=== PATIENT | female | born 1995 | race Caucasian/White ===

== ENCOUNTER 2024-02-15 15:33 | Emergency (ER) | payer MEDICAID, OTHER, SELFPAY ==
[2024-02-15 15:57] VITALS: BP 116/80; PULSE 111; RESP 19; TEMP 36.6; O2SAT 100; BMI 25.4
--- NOTE | 2024-02-15 19:19 | PC.NURSE ---
When room became available pt was called back. No answer. Pt was checked on @ 1749, 1805, and called on phone @ 3971. LWBS.
== END 2024-02-15 18:23 | disposition left against medical advice (07) ==
PROVIDERS: Emergency Provider Emergency Medicine
CPT/HCPCS: 99281

== ENCOUNTER 2024-02-18 23:24 | Observation (INO) | payer OTHER, MEDICAID, SELFPAY ==
[2024-02-18 23:35] VITALS: BP 125/84; PULSE 81; RESP 16; TEMP 36.6; O2SAT 96; BMI 25.4
[2024-02-18 23:36] VITALS: PULSE 86; O2SAT 99
[2024-02-18 23:37] VITALS: BP 125/84; PULSE 87; O2SAT 100
--- NOTE | 2024-02-18 23:51 | ED.ABDPAIN ---
HPI - Abdominal Pain General Chief Complaint: Abdominal Pain Stated Complaint: appendix Time Seen by Provider: 02/18/24 23:28 Source: patient Mode of arrival: Wheelchair History of Present Illness HPI narrative: 28-year-old female with history of amphetamine use, heroin, fentanyl use presents by private vehicle from home for severe lower abdominal pain, particularly on the right-hand side. Patient presented to the emergency department 3 days prior but left prior to being roomed. Patient states that she was not had a bowel movement in at least 1 week. Last use fentanyl several hours prior to arrival. States that she was tried to use an enema without relief. Has also tried to take MiraLax but she can not tolerate it due to vomiting. Related Data Allergies Allergy/AdvReac Type Severity Reaction Status Date / Time cefazolin Allergy Verified 02/19/24 05:31 Patient History Social History Smoking Status: Current every day smoker Smoking Status: Current every day smoker tobacco type: cigarettes and vaping alcohol intake frequency: other Substance Use Type: heroin, opiates and methamphetamine Exam Initial Vital Signs Initial Vital Signs: Vital Signs Temperature 97.8 F 02/18/24 23:35 Pulse Rate 81 02/18/24 23:35 Respiratory Rate 16 02/18/24 23:35 Blood Pressure 125/84 02/18/24 23:35 Pulse Oximetry 96 02/18/24 23:35 Oxygen Delivery Method Room Air 02/18/24 23:35 Const: Awake, alert, agitated, appears older than stated age Cardiac: regular rate, regular rhythm RESP: unlabored, clear bilaterally, no wheezing GI: Soft, generalized tenderness to deep palpation without rebound or guarding Skin: Warm, Dry, intact, no rashes Neuro: AO x3, CN II-XII grossly intact, moves all extremities Course Orders Ordered: Discontinued Medications Acetaminophen (Acetaminophen 325 Mg Tablet) 650 mg PO Q6H PRN PRN Reason: Fever/Mild Pain (1-3) Glycerin (Glycerin Supp Adult 1 Supp) 1 each NM NOW ONE Stop: 02/19/24 01:00 Last Admin: 02/19/24 01:34 Dose: 1 each Documented By: GIANA Sodium Chloride (Normal Saline 0.9%) 1,000 mls @ 1,000 mls/hr IV BOLUS ONE Stop: 02/19/24 00:49 Last Infusion: 02/19/24 01:28 Dose: Infused Documented By: Admin: 02/19/24 00:13 Dose: 1,000 mls/hr Documented By: GIANA Sodium Chloride (Normal Saline 0.9%) 1,000 mls @ 125 mls/hr IV CONT SUSANNE Last Infusion: 02/19/24 10:34 Dose: 0 mls/hr Documented By: Admin: 02/19/24 06:48 Dose: 125 mls/hr Documented By: GIANA Ketorolac Tromethamine (Ketorolac 30 Mg/Ml Vial) 15 mg IV NOW ONE Stop: 02/18/24 23:51 Last Admin: 02/19/24 00:13 Dose: 15 mg Documented By: GIANA Lactulose (Lactulose 20 Gm/30 Ml Solution) 40 gm PO NOW ONE Stop: 02/19/24 05:20 Last Admin: 02/19/24 05:40 Dose: 40 gm Documented By: GIANA Methylnaltrexone [address] (Methylnaltrexone 12 Mg/0.6 Ml Vial) 8 mg SUBCUT NOW ONE Stop: 02/19/24 01:00 Last Admin: 02/19/24 01:29 Dose: Not Given Documented By: GIANA Metoclopramide HCl (Metoclopramide 10 Mg/2 Ml Inj) 10 mg IV NOW ONE Stop: 02/19/24 01:54 Last Admin: 02/19/24 01:56 Dose: 10 mg Documented By: GIANA Naloxone HCl (Naloxone 0.4 Mg/Ml Vial) 0.2 mg IV Q2MIN PRN PRN Reason: Opiate Reversal Ondansetron HCl (Ondansetron 4 Mg/2 Ml Inj) 4 mg IV NOW ONE Stop: 02/18/24 23:51 Last Admin: 02/19/24 00:13 Dose: 4 mg Documented By: GIANA Ondansetron HCl (Ondansetron 4 Mg/2 Ml Inj) 4 mg IV Q8HR PRN PRN Reason: Nausea And Vomiting Last Admin: 02/19/24 10:20 Dose: 4 mg Documented By: STEVE Polyethylene Glycol/Electrolytes ([id number]/Sod Sulf,Bicarb,Cl/Kcl 4,000 Ml Solution) 4,000 ml PO NOW ONE Stop: 02/19/24 00:59 Last Admin: 02/19/24 01:34 Dose: 4,000 ml Documented By: GIANA Polyethylene Glycol/Electrolytes ([id number]/Sod Sulf,Bicarb,Cl/Kcl 4,000 Ml Solution) 2,000 ml PO NOW ONE Stop: 02/19/24 08:34 Last Admin: 02/19/24 09:19 Dose: Not Given Documented By: STEVE Prochlorperazine (Prochlorperazine 10 Mg/2 Ml Vial) 10 mg IV NOW ONE Stop: 02/19/24 05:20 Last Admin: 02/19/24 05:41 Dose: 10 mg Documented By: GIANA Sennosides (Sennosides 8.6 Mg Tablet) 17.2 mg PO NOW ONE Stop: 02/19/24 05:20 Last Admin: 02/19/24 05:40 Dose: 17.2 mg Documented By: GIANA Sodium Biphosphate/Sodium Phosphate (Fleets Enema) 1 each NM NOW ONE Stop: 02/19/24 01:00 Last Admin: 02/19/24 01:44 Dose: 1 each Documented By: GIANA Sodium Biphosphate/Sodium Phosphate (Fleets Enema) 1 each NM NOW ONE Stop: 02/19/24 05:01 Last Admin: 02/19/24 05:09 Dose: 1 each Documented By: GIANA Vital Signs Vital signs: Vital Signs - 8 hr 02/18/24 23:35 02/18/24 23:36 02/18/24 23:37 Temperature 97.8 F Pulse Rate 81 86 87 Respiratory Rate 16 Blood Pressure 125/84 Pulse Oximetry 96 99 100 Oxygen Delivery Method Room Air Room Air 02/18/24 23:37 02/19/24 00:00 02/19/24 00:21 Temperature Pulse Rate 83 68 Respiratory Rate Blood Pressure 125/84 Pulse Oximetry 98 99 Oxygen Delivery Method Room Air 02/19/24 00:21 02/19/24 00:41 02/19/24 00:41 Temperature Pulse Rate 74 Respiratory Rate 16 Blood Pressure 159/81 H 153/91 H Pulse Oximetry 100 Oxygen Delivery Method Room Air 02/19/24 01:00 02/19/24 01:00 02/19/24 01:30 Temperature Pulse Rate 73 71 Respiratory Rate 15 Blood Pressure 130/74 Pulse Oximetry 95 98 Oxygen Delivery Method Room Air 02/19/24 01:30 02/19/24 05:39 02/19/24 05:39 Temperature Pulse Rate 86 Respiratory Rate 17 Blood Pressure 115/71 104/69 Pulse Oximetry 100 Oxygen Delivery Method Room Air 02/19/24 05:41 Temperature Pulse Rate 74 Respiratory Rate Blood Pressure 104/69 Pulse Oximetry Oxygen Delivery Method MDM - Abdominal Pain Differential Diagnosis Differential diagnosis: Likely abdominal pain, acute appendicitis and calculus of kidney Lab Data 02/18/24 23:58 02/18/24 23:58 Labs: Lab Results 02/18/24 Range/Units 23:58 WBC 6.3 (4.5-11.0) X10^3/uL RBC 4.56 (4.0-5.2) X10^6/uL Hgb 13.3 (12.0-16.0) g/dL Hct 39.0 (36-46) % MCV 85.5 (80-100) fL MCH 29.1 (26-34) PG MCHC 34.0 (30-36) % RDW 12.6 (11.6-14.8) % Plt Count 161 (150-400) X10^3/uL Neut % (Auto) 70.5 (50-75) % Lymph % (Auto) 20.1 L (25-40) % [place] % (Auto) 7.8 (3-14) % Eos % (Auto) 1.1 L (2-4) % Baso % (Auto) 0.5 (0-2) % Neut # (Auto) 4400 (0193-8804) /uL Lymph # (Auto) 1300 (2336-8493) /uL [place] # (Auto) 500 (0-900) /uL Eos # (Auto) 100 (0-450) /uL Baso # (Auto) 0 (0-100) /uL Sodium 137 (137-145) mmol/L Potassium 4.1 (3.4-5.1) mmol/L Chloride 105 (98-107) mmol/L Carbon Dioxide 27 (22-32) mmol/L BUN 13 (7-17) mg/dL Creatinine 0.77 (0.52-1.04) mg/dL Estimated GFR > 60 (>60) mL/min BUN/Creatinine Ratio 16.9 (6-22) Glucose 101 H (70-100) mg/dL Lactate 0.7 (0.7-2.1) mmol/L Calcium 9.2 (8.4-10.2) mg/dL Total Bilirubin 0.6 (0.2-1.3) mg/dL AST 28 (14-36) IU/L ALT 21 (<35) IU/L Alkaline Phosphatase 71 (38-126) U/L Total Protein 7.2 (6.3-8.2) g/dL Albumin 4.3 (3.5-5.0) g/dL Globulin 2.9 (1.7-4.1) g/dL Albumin/Globulin Ratio 1.5 (1.0-2.8) Imaging Data CT scan - abdomen/pelvis: Radiologist's Impression: PROCEDURE: CT ABDOMEN PELVIS W CON INDICATIONS: RLQ ABD PAIN TECHNIQUE: After the administration of intravenous contrast, axial sections acquired from the lung bases to the pubic symphysis. Coronal and sagittal reformats were performed. For radiation dose reduction, the following was used: automated exposure control, adjustment of mA and/or kV according to patient size. COMPARISON: None. FINDINGS: Image quality: Diagnostic. Lower Chest: No significant findings. ABDOMEN: Liver: No solid mass. Gallbladder: No radiopaque gallstones or wall thickening. Biliary ducts: No biliary dilation. Pancreas: No ductal dilation. Spleen: Size is within normal limits. Adrenal Glands: No adrenal nodules. Kidneys and Ureters: No hydronephrosis. No solid mass. No complex renal cystic lesion which requires follow up. Stomach and Bowel: There is significant colonic stool. In addition, dilated fluid-filled loops of small bowel are present with greatest dimension measuring 3.5 cm. Peritoneum: No abnormal intraperitoneal fluid. No free air. Ventral Wall: No significant ventral hernia. Abdominal Nodes: No retroperitoneal or mesenteric adenopathy by size criteria. Vessels: Aorta and inferior vena cava are normal in size. PELVIS: Pelvic Organs: Unremarkable. Bladder: No bladder wall thickening, accounting for underdistention. Pelvic Nodes: No enlarged lymph nodes. Miscellaneous: No inguinal hernias are seen. Bones: No aggressive osseous abnormality. IMPRESSION: Dilated fluid-filled loops of small bowel most consistent with partial small bowel obstruction. Causes suspected to be related to significant quantity of colonic stool. Dictated by: Shari Chauhan M.D. on 02/19/2024 at 0:49 Approved by: Shari Chauhan M.D. on 02/19/2024 at 0:51 MDM Narrative Medical decision making narrative: Abdominal pain and constipation, likely exacerbated by chronic opiate use. Since patient was reporting that her ?appendix? hurts and that she is having right-sided abdominal pain a CT scan will be ordered. Laxatives ordered. CT shows possible partial SBO, thought likely secondary to large colonic stool burden. Attempted suppository and enema without relief. Patient given gallon of go lytely to start bowel cleanout, however patient refused to try more than a few sips. Instructed patient that next step would be NG tube placement for bowel cleanout. Patient requested we place NG tube rather than try po. Patient immediately ripped out NG tube and began vomiting. Nursing staff attempted multiple soapsuds enemas without relief of stool burden. Additional laxatives and nausea medications ordered. Despite more IV pain meds as well as laxatives patient has still not been able to have a bowel movement and is still not tolerating p.o.. Plan to admit for observation. Discharge Plan Departure Patient Disposition: Left Against Medical Advice Clinical Impression: Abdominal pain, Constipation, Adv eff opiates
[2024-02-19] VITALS (14 sets, daily range): BP systolic 101–159; BP diastolic 61–91; PULSE 68–90; RESP 15–17; O2SAT 95–100
[2024-02-19 00:05] LABS: Add Manual Diff / Slide Review NO; Basophils Absolute Auto 0 /uL (0-100); Basophils Percent Auto 0.5 % (0-2); Eosinophils Absolute Auto 100 /uL (0-450); Eosinophils Percent Auto 1.1 % (2-4); Hemoglobin 13.3 g/dL (12.0-16.0); Lymphocytes Absolute Auto 1300 /uL (1100-4500); Lymphocytes Percent Auto 20.1 % (25-40); Mean Corpuscular Hemoglobin 29.1 PG (26-34); Mean Corpuscular Volume 85.5 fL (80-100); Monocytes Absolute Auto 500 /uL (0-900); Monocytes Percent Auto 7.8 % (3-14); Neutrophils Absolute Auto 4400 /uL (1500-7000); Neutrophils Percent Auto 70.5 % (50-75); Platelet Count 161 X10^3/uL (150-400); Red Blood Cell Count 4.56 X10^6/uL (4.0-5.2); Red Cell Distribution Width 12.6 % (11.6-14.8); White Blood Cell Count 6.3 X10^3/uL (4.5-11.0)
[2024-02-19] MEDS: KETOROLAC 30 MG/ML VIAL 15 MG IV (00:13)
[2024-02-19] MEDS: ONDANSETRON 4 MG/2 ML INJ IV ×2 (00:13→10:20)
[2024-02-19] MEDS: SODIUM CHLORIDE 0.9% 1,000 ML 1000 ML IV (00:13)
[2024-02-19 00:17] LABS: Alanine Aminotransferase 21 IU/L (<35); Albumin 4.3 g/dL (3.5-5.0); Albumin Globulin Ratio 1.5 (1.0-2.8); Alkaline Phosphatase 71 U/L (38-126); Aspartate Aminotransferase 28 IU/L (14-36); BUN Creatinine Ratio 16.9 (6-22); Bilirubin Total 0.6 mg/dL (0.2-1.3); Blood Urea Nitrogen 13 mg/dL (7-17); Calcium 9.2 mg/dL (8.4-10.2); Carbon Dioxide 27 mmol/L (22-32); Chloride 105 mmol/L (98-107); Estimated Glomerular Filt Rate > 60 mL/min (>60); Globulin 2.9 g/dL (1.7-4.1); Glucose 101 mg/dL (70-100); HEMOLYSIS < 15 (0-50); Lactate (Lactic Acid) 0.7 mmol/L (0.7-2.1); Potassium 4.1 mmol/L (3.4-5.1); Sodium 137 mmol/L (137-145); Total Protein 7.2 g/dL (6.3-8.2)
[2024-02-19] MEDS: PEG3350/SOD SULF,BICARB,CL/KCL 4,000 ML SOLUTION 4000 ML PO (01:34)
[2024-02-19] MEDS: GLYCERIN SUPP ADULT 1 SUPP 1 EACH PR (01:34)
[2024-02-19] MEDS: FLEETS ENEMA 1 EACH PR ×2 (01:44→05:09)
[2024-02-19] MEDS: METOCLOPRAMIDE 10 MG/2 ML INJ IV (01:56)
--- NOTE | 2024-02-19 04:13 | PC.NURSE ---
This nurse attempted to insert NG tube in patient. Was able to insert 6 inches before patient grabbed the tube and pulled it out and said I don't want that thing. Dr. Chung notified, new order of enema administration received.
--- NOTE | 2024-02-19 05:16 | PC.NURSE ---
After a suppository, fleet enema, a soap baldomero enema, and another fleet enema, the patient was only able to have a small hard bowel movement.
[2024-02-19] MEDS: LACTULOSE 20 GM/30 ML SOLUTION 40 GM PO (05:40)
[2024-02-19] MEDS: SENNOSIDES 8.6 MG TABLET 17.2 MG PO (05:40)
[2024-02-19] MEDS: PROCHLORPERAZINE 10 MG/2 ML VIAL IV (05:41)
--- NOTE | 2024-02-19 06:15 | PC.NURSE ---
Patient had large emesis after taking the lactulose and oral senna tablets. Dr. Chung aware, awaiting orders.
[2024-02-19] MEDS: SODIUM CHLORIDE 0.9% 1,000 ML 125 ML IV (06:48)
--- NOTE | 2024-02-19 08:33 | PM.HP.1 ---
History of Present Illness History of Present Illness Date Patient Seen: 02/19/24 Chief complaint: appendix Narrative: From ED doctor: 28-year-old female with history of amphetamine use, heroin, fentanyl use presents by private vehicle from home for severe lower abdominal pain, particularly on the right-hand side. Patient presented to the emergency department 3 days prior but left prior to being roomed. Patient states that she was not had a bowel movement in at least 1 week. Last use fentanyl several hours prior to arrival. States that she was tried to use an enema without relief. Has also tried to take MiraLax but she can not tolerate it due to vomiting. S: [facility] Social History Smoking Status: Current every day smoker Meds Home Medications and Allergies Allergies Allergy/AdvReac Type Severity Reaction Status Date / Time cefazolin Allergy Verified 02/19/24 05:31 Review of Systems Review of Systems Narrative: All else reviewed and otherwise unremarkable except as noted in the history and physical. Exam Vital Signs (past 8 hours): - 02/19/24 00:41 02/19/24 00:41 02/19/24 01:00 Pulse Rate 74 73 Respiratory Rate 16 Blood Pressure 153/91 H Pulse Oximetry 100 95 Oxygen Delivery Method Room Air 02/19/24 01:00 02/19/24 01:30 02/19/24 01:30 Pulse Rate 71 Respiratory Rate 15 Blood Pressure 130/74 115/71 Pulse Oximetry 98 Oxygen Delivery Method Room Air 02/19/24 05:39 02/19/24 05:39 02/19/24 05:41 Pulse Rate 86 74 Respiratory Rate 17 Blood Pressure 104/69 104/69 Pulse Oximetry 100 Oxygen Delivery Method Room Air Oxygen Delivery Method Room Air Narrative Exam Narrative: NAD, alert and oriented, fluent speech, calm. Normocephalic skull, EOMI, anicteric sclera, symmetric pupils. Oropharynx unremarkable, no droop. Neck supple, midline trachea, no adenopathy. Lungs clear, normal rate and effort. Heart regular, no murmur gallop or rub. Abdomen is soft, non distended and non tender. Extremities are free of edema. Skin is free of rash or lesions. Joints are not swollen or deformed. Judgment appears to be normal. Objective Labs 02/18/24 23:58 02/18/24 23:58 Labs: Laboratory Results - last 24 hr 02/18/24 23:58 WBC 6.3 RBC 4.56 Hgb 13.3 Hct 39.0 MCV 85.5 MCH 29.1 MCHC 34.0 RDW 12.6 Plt Count 161 Neut % (Auto) 70.5 Lymph % (Auto) 20.1 L [place] % (Auto) 7.8 Eos % (Auto) 1.1 L Baso % (Auto) 0.5 Neut # (Auto) 4400 Lymph # (Auto) 1300 [place] # (Auto) 500 Eos # (Auto) 100 Baso # (Auto) 0 Sodium 137 Potassium 4.1 Chloride 105 Carbon Dioxide 27 BUN 13 Creatinine 0.77 Estimated GFR > 60 BUN/Creatinine Ratio 16.9 Glucose 101 H Lactate 0.7 Calcium 9.2 Total Bilirubin 0.6 AST 28 ALT 21 Alkaline Phosphatase 71 Total Protein 7.2 Albumin 4.3 Globulin 2.9 Albumin/Globulin Ratio 1.5 Assessment & Plan Assessment & Plan narrative: 1. Opiate induced constipation, present on admission and active. 2. Heroin and fentanyl abuse, present on admission and active. 3. Methamphetamine abuse, present on admission and active. Plan: Trial of GoLYTELY to improve constipation. Admitted to observation status with an estimated 1 day stay. Time-Based Coding :: 30 min spent with patient and on the chart (including review of chart, obtaining history, exam, reviewing outside data, placing orders, documenting exam and treatment plan, and counseling patient) on 02/18. . Quality MIPS - Admit I confirm the patient?s Advance Care Plan is present, Code status is documented, Surrogate decision maker is in patient?s record [If Yes, STOP here]: Yes MIPS - Meds 'Current medications' to include all prescriptions, [id number] products, herbals, cannabis/cannabidiol products, and vitamin/mineral/dietary (nutritional) supplements. I have utilized all available resources to obtain, update, or review the patient?s current medications. [If Yes, STOP here]: Yes
--- NOTE | 2024-02-19 10:34 | PC.NURSE ---
Pt expressed wishes to nurse to leave AMA; MD Rosas aware of pts wishes; pt signed AMA paperwork; security sergeant Faizan garcia
--- NOTE | 2024-02-19 11:26 | PM.CALLCOV.1 ---
Call Coverage Note Note Date of Patient Contact: 02/19/24 Narrative of Care Provided: I was called to admit this patient at 7 in the morning. The patient was born in the ER for the next several hours until a bed would open up. The patient then declared that she would leave against medical advice but did request taking the container of GoLYTELY with her. I did not see this patient was she left prior to my being able to go to the emergency department to speak with her.
== END 2024-02-19 10:39 | disposition home or self-care (01) ==
LOC: ED 02-19 06:41 → AC 02-19 07:45
PROVIDERS: Admitting Provider Hospitalist; Emergency Provider Emergency Medicine; Referring Provider Emergency Medicine; Visit Provider Hospitalist
DX: K59.00 Constipation, unspecified (principal); Z53.29 Procedure and treatment not carried out because of patient's decision for other reasons; F11.90 Opioid use, unspecified, uncomplicated; F19.90 Other psychoactive substance use, unspecified, uncomplicated; Z72.0 Tobacco use
CPT/HCPCS: 36415; 74177; 80053; 83605; 85025; 96361; 96374; 96375; 96376; 99284; G0378; J0780; J1885; J2405; J2765; Q9967